=== PATIENT | female | born 1985 | race Two or more races ===

== ENCOUNTER 2019-12-03 11:33 | Emergency (ER) | payer MEDICAID ==
--- NOTE | 2019-12-03 11:47 | EDM.PDOC ---
ED HPI GENERAL MEDICAL PROBLEM - General Chief Complaint: Genitourinary Problem Stated Complaint: UTI Time Seen by Provider: 12/03/19 11:33 Source of Information: Reports: Patient History Limitations: Reports: No Limitations - History of Present Illness INITIAL COMMENTS - FREE TEXT/NARRATIVE: HISTORY AND PHYSICAL: History of present illness: Patient is a 34-year-old female who presents to the emergency room with complaints of dysuria and concerns of an STD. Over the past 4 days she has had discomfort associated with voiding. Recently found out her significant other has been sleeping with other people. States she has had a small amount of vaginal discharge, unsure if this is normal discharge or if she is "being paranoid". She states there is a chance of today. Patient denies any fever, chills, headache, change in vision, syncope or near syncope. Denies any chest pain, back pain, shortness of breath or cough. Denies any abdominal pain, nausea, vomiting, diarrhea, constipation or dysuria. Has not noted any blood in urine or stool. Patient has been eating and drinking appropriately. Review of systems: As per history of present illness and below otherwise all systems reviewed and negative. Past medical history: As per history of present illness and as reviewed below otherwise noncontributory. Surgical history: As per history of present illness and as reviewed below otherwise noncontributory. Social history: See social history for further information Family history: As per history of present illness and as reviewed below otherwise noncontributory. Physical exam: General: Well-developed and well-nourished 34-year-old female. Alert and oriented. Nontoxic appearing and in no acute distress. HEENT: Atraumatic, normocephalic, pupils equal and reactive bilaterally, negative for conjunctival pallor or scleral icterus, mucous membranes moist, TMs normal bilaterally, throat clear, neck supple, nontender, trachea midline. No drooling or trismus noted. No meningeal signs. No hot potato voice noted. Lungs: Clear to auscultation, breath sounds equal bilaterally, chest nontender. Heart: S1S2, regular rate and rhythm without overt murmur Abdomen: Soft, nondistended, mild suprapubic tenderness. Negative for costovertebral tenderness. Pelvis: Stable nontender. Skin: Intact, warm, dry. No lesions or rashes noted. Extremities: Atraumatic, moves all extremities per self without difficulty or deficits, negative for cords or calf pain. Neurovascular unremarkable. Neuro: Awake, alert, oriented. Cranial nerves II through XII unremarkable. Cerebellum unremarkable. Motor and sensory unremarkable throughout. Exam nonfocal. Notes: Patient does have a UTI and BV; will treat with pryidium and abx. Medication and supportive care measures were reviewed and discussed. Voices understanding and is agreeable to plan of care. Denies any further questions or concerns at this time. Diagnostics: UA, hCG U, gonorrhea/chlamydia, Trichomonas Therapeutics: None Prescription: Cipro, Flagyl, Pyridium Impression: UTI Bacterial Vaginosis STD screening Plan: 1. Increase your oral fluids. Take the medications as directed for the UTI and Bacterial Vaginosis. 2. Please abstain from sexual intercourse until the lab results have returned. Always use protection to minimized risk of STD exposureThe gonorrhea and chlamydia tests are send out labs, therefore will not be available for 2-3 business days. 3. Please follow-up with your primary care provider in the next 1-2 days. [facility] does offer free STD testing, please follow-up with them for further STD testing needs. Return to the ED as needed and as discussed. Definitive disposition and diagnosis as appropriate pending reevaluation and review of above. Urination Pain Score (Numeric/FACES): 9 - Related Data Allergies Allergy/AdvReac Type Severity Reaction Status Date / Time No Known Allergies Allergy Verified 12/03/19 11:47 Home Meds: Home Meds Ciprofloxacin HCl [Cipro] 500 mg PO BID 7 Days #14 tablet 12/03/19 [Rx] Phenazopyridine HCl [Pyridium] 100 mg PO TID 2 Days #6 tablet 12/03/19 [Rx] metroNIDAZOLE [Flagyl] 500 mg PO BID 7 Days #14 tab 12/03/19 [Rx] ED ROS GENERAL - Review of Systems Review Of Systems: Comprehensive ROS is negative, except as noted in HPI. ED EXAM, RENAL/ - Physical Exam Exam: See Below (See dictation) Course - Vital Signs Last Recorded V/S: Last Vital Signs Temp 97.3 F 12/03/19 11:47 Pulse 71 12/03/19 11:47 Resp 18 12/03/19 11:47 BP 149/87 H 12/03/19 11:47 Pulse Ox 98 12/03/19 11:47 - Orders/Labs/Meds Orders: Active Orders 24 hr Category Date Time Status CHLAMYDIA AND GONORRHEA BY TMA Stat Lab 12/03/19 11:45 Received CULTURE URINE [RM] Stat Lab 12/03/19 11:45 Received Labs: Laboratory Tests 12/03/19 12/03/19 12/03/19 Range/Units 11:45 11:45 11:56 Urine Color YELLOW Urine Appearance SLT CLOUDY Urine pH 8.0 (5.0-8.0) Ur Specific [place] 1.025 (1.001-1.035) Urine Protein TRACE H (NEGATIVE) mg/dL Urine Glucose (UA) NEGATIVE (NEGATIVE) mg/dL Urine Ketones NEGATIVE (NEGATIVE) mg/dL Urine Occult Blood LARGE H (NEGATIVE) Urine Nitrite POSITIVE H (NEGATIVE) Urine Bilirubin NEGATIVE (NEGATIVE) Urine Urobilinogen 0.2 (<2.0) EU/dL Ur Leukocyte Esterase TRACE H (NEGATIVE) Urine RBC 20-30 (0-2/HPF) Urine WBC 15-20 (0-5/HPF) Ur Epithelial Cells OCCASIONAL (NONE-FEW) Urine Bacteria 1+ H (NEGATIVE) Urine HCG, Qual NEGATIVE (NEGATIVE) Pooja species DNA NEGATIVE (NEGATIVE) Gardnerella DNA Probe POSITIVE H (NEGATIVE) Trichomonas DNA Probe NEGATIVE (NEGATIVE) Departure - Departure Time of Disposition: 12:54 Disposition: Home, Self-Care 01 Clinical Impression: UTI, Urinary tract infectious disease, Bacterial vaginosis, Screening for STD ( sexually transmitted disease) - Discharge Information Prescriptions: Ciprofloxacin HCl [Cipro] 500 mg PO BID 7 Days #14 tablet metroNIDAZOLE [Flagyl] 500 mg PO BID 7 Days #14 tab Phenazopyridine HCl [Pyridium] 100 mg PO TID 2 Days #6 tablet Instructions: Bacterial Vaginosis, [id number], Urinary Tract Infection, Adult , [id number] Referrals: PCP,Not In Area [Primary Care Provider] - Forms: ED Department Discharge Additional Instructions: The following information is given to patients seen in the emergency department who are being discharged to home. This information is to outline your options for follow-up care. We provide all patients seen in our emergency department with a follow-up referral. The need for follow-up, as well as the timing and circumstances, are variable depending upon the specifics of your emergency department visit. If you don't have a primary care physician on staff, we will provide you with a referral. We always advise you to contact your personal physician following an emergency department visit to inform them of the circumstance of the visit and for follow-up with them and/or the need for any referrals to a consulting specialist. The emergency department will also refer you to a specialist when appropriate. This referral assures that you have the opportunity for follow-up care with a specialist. All of these measure are taken in an effort to provide you with optimal care, which includes your follow-up. Under all circumstances we always encourage you to contact your private physician who remains a resource for coordinating your care. When calling for follow-up care, please make the office aware that this follow-up is from your recent emergency room visit. If for any reason you are refused follow-up, please contact the [facility] at and asked to speak to the emergency department charge nurse. [facility] [address] [place] [id number] [facility] [address] [place] [id number] 1. Increase your oral fluids. Take the medications as directed for the UTI and Bacterial Vaginosis. 2. Please abstain from sexual intercourse until the lab results have returned. Always use protection to minimized risk of STD exposureThe gonorrhea and chlamydia tests are send out labs, therefore will not be available for 2-3 business days. 3. Please follow-up with your primary care provider in the next 1-2 days. [facility] does offer free STD testing, please follow-up with them for further STD testing needs. Return to the ED as needed and as discussed. Sepsis Event Note - Focused Exam Vital Signs: Vital Signs Temp Pulse Resp BP Pulse Ox 12/03/19 11:47 97.3 F 71 18 149/87 H 98 Date Exam was Performed: 12/03/19 Time Exam was Performed: 12:54 - My Orders Last 24 Hours: My Active Orders 12/03/19 11:45 CHLAMYDIA AND GONORRHEA BY TMA Stat CULTURE URINE [RM] Stat - Assessment/Plan Last 24 Hours: My Active Orders 12/03/19 11:45 CHLAMYDIA AND GONORRHEA BY TMA Stat CULTURE URINE [RM] Stat
== END 2019-12-03 13:02 | disposition home or self-care (01) ==
LOC: MW.ED 11:33
DX: N76.0 Acute vaginitis (principal); N39.0 Urinary tract infection, site not specified; Z11.3 Encounter for screening for infections with a predominantly sexual mode of transmission
CPT/HCPCS: 81001; 81025; 87086; 87088; 87186; 87480; 87491; 87510; 87591; 87660; 99283